=== PATIENT | female | born 2000 | race American Indian/Alaskan Native ===

== ENCOUNTER 2021-09-08 09:45 | Emergency (ER) | payer SELFPAY ==
--- NOTE | 2021-09-08 13:07 | Ultrasound Report ---
ULTRASOUND PELVIS INDICATION / CLINICAL INFORMATION: pelvic pain. TECHNIQUE: Transabdominal. Duplex Color Doppler used: Yes. COMPARISON: None available FINDINGS: UTERUS: - Appearance: No significant abnormality. - Size (cm): 6.9 x 3.5 x 3.0 - Endometrial Complex (if present): No significant abnormality.. Thickness in cm (if measured) = 0.9 - Mass or cyst: None. - Additional findings: None. RIGHT ADNEXA: The right ovary measures 2.3 x 1.3 x 1.5 cm. No significant ovarian cyst or mass. Echo l color Doppler blood flow. LEFT ADNEXA: The left ovary measures 4.0 x 3.8 x 3.8 cm. There is a 3 cm hypoechoic lesion arising fr om the left ovary with irregular margins without internal vascularity. No other solid or cystic lesio ns. Normal color Doppler blood flow. URINARY BLADDER: Not well-visualized. FREE FLUID: None. ADDITIONAL FINDINGS: None. IMPRESSION: 1. Indeterminate left ovarian hypoechoic lesion likely represents a cyst. Further evaluation with tra nsvaginal sonography would be helpful. 2. No other significant abnormality of the pelvis to explain the patient's pain. Signer Name: Vick Lenz MD Signed: 09/08/2021 1:03 PM Workstation Name: [id number]
[2021-09-08 13:24] LABS: Bilirubin,Urine NEG (Negative); Blood,Urine NEG (Negative); Color,Urine Yellow (Yellow); Protein,Urine <15 mg/dL mg/dL (Negative); Urobilinogen,Urine < 2.0 mg/dL (<2.0)
[2021-09-08 13:25] LABS: Mucus,Urine FEW /HPF; WBC,Urine < 1.0 /HPF (0.0-6.0)
[2021-09-08 13:35] LABS: HCG Qualitative,Urine Negative (Negative)
--- NOTE | 2021-09-08 13:48 | Emergency Department Report ---
ED Abdominal Pain HPI - General Chief Complaint: Medical Clearance Stated Complaint: CYST RUPTURE Time Seen by Provider: 09/08/21 11:42 Source: patient Mode of arrival: Ambulatory Limitations: No Limitations - History of Present Illness Initial Comments: 20-year-old black female with a past medical history of a left ovarian cyst presents to the emergency department for evaluation of left lower pelvic pain. She states that she has had pain intermittently for the last month or so but pain was severely worse today. She states that pain was associated with some nausea and vomiting, but she denies fever, dysuria, and vaginal discharge. She states that her menstrual cycle started yesterday. She states that pain is 10 out of 10 and has been persistent since this morning. She states that she spoke with her [facility] prior to arrival who advised her to come to the ER for further evaluation. She states that she has not taken any medication for her symptoms. MD Complaint: abdominal pain -: Gradual, days(s) (1) Location: LLQ Radiation: none Migration to: no migration Severity scale (0 -10): 10 Quality: aching Consistency: intermittent Associated Symptoms: nausea, vomiting. denies: diarrhea, fever, chills, dysuria, hematemesis, hematochezia, melena, hematuria, anorexia, syncope - Related Data LMP Date: 09/08/21 Previous Rx's Medication Instructions Recorded Last Taken Type Ketorolac [Toradol] 10 mg PO Q6H PRN #12 tab 09/08/21 Unknown Rx Allergies Allergy/AdvReac Type Severity Reaction Status Date / Time No Known Allergies Allergy Verified 09/08/21 10:09 ED Review of Systems ROS: Stated complaint: CYST RUPTURE Other details as noted in HPI Comment: All other systems reviewed and negative Constitutional: denies: chills, fever Eyes: denies: vision change ENT: denies: throat pain, dental pain, congestion Respiratory: denies: shortness of breath Cardiovascular: denies: chest pain, palpitations Gastrointestinal: abdominal pain, nausea, vomiting. denies: diarrhea, hematemesis, melena, hematochezia Genitourinary: denies: urgency, dysuria, frequency, hematuria, discharge, abnormal menses Musculoskeletal: denies: back pain Skin: denies: rash, lesions Neurological: denies: headache, weakness ED Past Medical Hx - Medications Home Medications: Home Medications Medication Instructions Recorded Confirmed Last Taken Type Ketorolac [Toradol] 10 mg PO Q6H PRN #12 tab 09/08/21 Unknown Rx ED Physical Exam - General Limitations: No Limitations General appearance: alert, in no apparent distress - Head Head exam: Present: atraumatic, normocephalic - Eye Eye exam: Present: normal appearance. Absent: conjunctival injection - Neck Neck exam: Present: normal inspection, full ROM. Absent: tenderness, lymphadenopathy, thyromegaly - Respiratory Respiratory exam: Present: normal lung sounds bilaterally. Absent: respiratory distress, wheezes, rales, rhonchi, stridor, chest wall tenderness - Cardiovascular Cardiovascular Exam: Present: regular rate, normal heart sounds - GI/Abdominal GI/Abdominal exam: Present: soft, tenderness (Left lower quadrant), normal bowel sounds. Absent: distended, guarding, rebound, rigid - Extremities Exam Extremities exam: Present: normal inspection, full ROM, normal capillary refill. Absent: tenderness, pedal edema, joint swelling, calf tenderness - Back Exam Back exam: Present: normal inspection. Absent: CVA tenderness (R), CVA tenderness (L), vertebral tenderness - Neurological Exam Neurological exam: Present: alert, oriented X3, CN II-XII intact, normal gait, reflexes normal. Absent: motor sensory deficit - Psychiatric Psychiatric exam: Present: normal affect, normal mood - Skin Skin exam: Present: warm, dry, intact, normal color ED Course Vital Signs 09/08/21 09/08/21 10:07 13:35 Temperature 97.7 F 98.1 F Pulse Rate 70 72 Respiratory 18 16 Rate Blood Pressure 96/74 128/74 [Left] O2 Sat by Pulse 99 100 Oximetry ED Medical Decision Making - Radiology Data Radiology results: report reviewed, image reviewed Pelvic ultrasound complete: FINDINGS: UTERUS: - Appearance: No significant abnormality. - Size (cm): 6.9 x 3.5 x 3.0 - Endometrial Complex (if present): No significant abnormality.. Thickness in cm (if measured) = 0.9 - Mass or cyst: None. - Additional findings: None. RIGHT ADNEXA: The right ovary measures 2.3 x 1.3 x 1.5 cm. No significant ovarian cyst or mass. Normal color Doppler blood flow. LEFT ADNEXA: The left ovary measures 4.0 x 3.8 x 3.8 cm. There is a 3 cm hypoechoic lesion arising from the left ovary with irregular margins without internal vascularity. No other solid or cystic lesions. Normal color Doppler blood flow. URINARY BLADDER: Not well-visualized. FREE FLUID: None. ADDITIONAL FINDINGS: None. IMPRESSION: 1. Indeterminate left ovarian hypoechoic lesion likely represents a cyst. Further evaluation with transvaginal sonography would be helpful. 2. No other significant abnormality of the pelvis to explain the patient's pain. - Medical Decision Making 20-year-old black female with a past medical history of a left ovarian cyst presents to the emergency department for evaluation of left lower pelvic pain. She states that she has had pain intermittently for the last month or so but pain was severely worse today. She states that pain was associated with some nausea and vomiting, but she denies fever, dysuria, and vaginal discharge. She states that her menstrual cycle started yesterday. She states that pain is 10 out of 10 and has been persistent since this morning. She states that she spoke with her [facility] prior to arrival who advised her to come to the ER for further evaluation. She states that she has not taken any medication for her symptoms. Physical exam unremarkable. Ultrasound positive for left ovarian cyst. Urine negative for UTI and . Patient be discharged home with prescription for Toradol to use as needed for pain and advised to follow-up with [facility] as previously planned. She is advised to return to the emergency department for any concerning symptoms. She verbalizes understanding of and agreement with plan of care. Critical care attestation.: If time is entered above; I have spent that time in minutes in the direct care of this critically ill patient, excluding procedure time. ED Disposition Clinical Impression: Ovarian cyst Qualifiers: Laterality: left Qualified Code(s): N83.202 - Unspecified ovarian cyst, left side Disposition: 01 HOME / SELF CARE / HOMELESS Is pt being admited?: No Does the pt Need Aspirin: No Condition: Stable Instructions: Ovarian Cyst, Myot-yx-Pzot Additional Instructions: Take medications as prescribed. Follow-up with primary care provider or [facility] if no improvement or worsening symptoms. Return to the emergency department as needed. Prescriptions: Ketorolac [Toradol] 10 mg PO Q6H PRN #12 tab PRN Reason: Pain Referrals: PRIMARY CARE, [Primary Care Provider] - 3-5 Days Time of Disposition: 13:48
[2021-09-08 13:59] VITALS: BP 128/74
== END 2021-09-08 13:59 | disposition home or self-care (01) ==
LOC: ED 09:45
DX: N83.202 Unspecified ovarian cyst, left side (principal)
CPT/HCPCS: 76856; 81001; 81025; 99284